=== PATIENT | male | born 1985 | race Caucasian/White ===

== ENCOUNTER 2018-03-26 15:12 | Emergency (ER) | payer BC, OTHER ==
[2018-03-26 15:24] VITALS: BP 131/79
--- NOTE | 2018-04-07 06:32 | UC ---
Cardiac HPI - History of Current Complaint Chief Complaint: UCChestPain Stated Complaint: DIZZY,LEFT ARM AND NECK PAIN Time Seen by Provider: 03/26/18 15:38 Pain Intensity: 3 - Allergy/Home Medications Allergies/Adverse Reactions: Allergies Allergy/AdvReac Type Severity Reaction Status Date / Time Seasonal Allergies Allergy Sneezing Uncoded 03/17/15 10:49 Home Medications: Home Medications Hyoscyamine ER (NF) [Levbid (NF)] 0.375 mg PO BID 03/26/18 [History Confirmed ] PMH/Surg Hx/FS Hx/Imm Hx - Surgical History Surgical History: Yes Surgery Procedure, Year, and Place: L knee surgery - Social History Alcohol Use: Daily Alcohol Amount: 1 per day Substance Use Type: None Smoking Status (MU): Smoker, Current Status Unknown Type: Cigars When Did the Patient Quit Smoking/Using Tobacco: 6 years ago - Immunization History Most Recent Tetanus Shot: 2013 Physical Exam Vital Signs: Initial Vital Signs Temp 98.8 F 03/26/18 15:20 Pulse 76 03/26/18 15:20 Resp 18 03/26/18 15:20 BP 131/79 03/26/18 15:20 Pulse Ox 100 03/26/18 15:20 Discharge - Discharge Plan Condition: Stable Disposition: HOME Referrals: No Primary Care Phys,NOPCP [Primary Care Provider] - Additional Instructions: Go directly to the ED - Billing Disposition and Condition Condition: STABLE Disposition: Home
--- NOTE | 2018-04-07 06:32 | UC ---
Cardiac HPI - HPI Summary HPI Summary: Patient is an otherwise healthy 32-year-old male presenting to the urgent care with complaint of lightheadedness and left-sided chest pain radiating to the left arm. His left-sided chest pain began simultaneously with his lightheadedness. He states however he has had this chest pain intermittently 2 years, however has never had lightheadedness accompanying. Denies any shortness of breath, or shortness of breath with exertion. He describes this pain as a dull ache. Denies any fever, cough, recent trauma to the chest or ribs, nausea, vomiting, diarrhea, or abdominal pain. Former smoker, quit approximately 10 years ago. 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 Onset/Duration: Sudden Onset Timing: Intermittent Episodes Lasting: - 30 minutes Initial Severity: Mild Pain Intensity: 3 Chest Pain Location: Left Anterior Character: Dull/Aching Aggravating Factor(s): Nothing Alleviating Factor(s): Spontaneous Resolution Associated Signs & Symptoms: Positive: Chest Pain - Risk Factors Pulmonary Embolism Risk Factors: Negative Cardiac Risk Factors: Negative Atrial Fibrillation: Negative TAD Risk Factors: Negative - Allergy/Home Medications Allergies/Adverse Reactions: Allergies Allergy/AdvReac Type Severity Reaction Status Date / Time Seasonal Allergies Allergy Sneezing Uncoded 03/17/15 10:49 Home Medications: Home Medications Hyoscyamine ER (NF) [Levbid (NF)] 0.375 mg PO BID 03/26/18 [History Confirmed ] PMH/Surg Hx/FS Hx/Imm Hx Previously Healthy: Yes - Surgical History Surgical History: Yes Surgery Procedure, Year, and Place: L knee surgery - Family History Known Family History: Positive: Hypertension - Social History Occupation: Employed Full-time Lives: With Family Alcohol Use: Daily Alcohol Amount: 1 per day Substance Use Type: None Smoking Status (MU): Smoker, Current Status Unknown Type: Cigars When Did the Patient Quit Smoking/Using Tobacco: 6 years ago - Immunization History Most Recent Tetanus Shot: 2013 Review of Systems Constitutional: Negative Skin: Negative ENT: Negative Respiratory: Negative Cardiovascular: Chest Pain Gastrointestinal: Negative Musculoskeletal: Negative Neurological: Other - lightheadedness Psychological: Negative Is Patient Immunocompromised?: No All Other Systems Reviewed And Are Negative: Yes Physical Exam Triage Information Reviewed: Yes Appearance: Well-Appearing, No Pain Distress, Well-Nourished Vital Signs: Initial Vital Signs Temp 98.8 F 03/26/18 15:20 Pulse 76 03/26/18 15:20 Resp 18 03/26/18 15:20 BP 131/79 03/26/18 15:20 Pulse Ox 100 03/26/18 15:20 Vital Signs Reviewed: Yes Eye Exam: Normal Eyes: Positive: Conjunctiva Clear Neck exam: Normal Neck: Positive: Supple Respiratory Exam: Normal Respiratory: Positive: Chest non-tender, Lungs clear Cardiovascular Exam: Normal Cardiovascular: Positive: RRR. Negative: Tachycardia, Bradycardia, Distal Pulses Weak, Distal Pulses Absent, Delayed Capillary Refill Musculoskeletal Exam: Normal Musculoskeletal: Positive: Strength Intact Neurological Exam: Normal Neurological: Positive: Alert Psychological Exam: Normal Psychological: Positive: Normal Response To Family Skin Exam: Normal - Assessment/Plan Course Of Treatment: During the course of treatment, the patient is evaluated for what sided chest pain radiating to the left arm with lightheadedness. Discussed with patient at length concern for his symptoms and is encouraged to go to the ED. He is agreeable to this plan. EKG obtained which shows no abnormal findings. Discussed case with girlfriend at bedside who agrees with plan to go directly to the ED. They have declined ambulance and will go by private car. He is currently asymptomatic. Vital signs remained stable. - Differential Diagnoses - Chest Pain Differential Diagnosis/HQI/PQRI: Acute [place], ACS, Angina, Chest Wall - Clinical Impression Provider Diagnoses: Chest Pain Discharge - Sign-Out/Discharge Documenting (check all that apply): Patient Departure - Discharge Plan Condition: Stable Disposition: HOME Referrals: No Primary Care Phys,NOPCP [Primary Care Provider] - Additional Instructions: Go directly to the ED - Billing Disposition and Condition Condition: STABLE Disposition: Home Attestation Statement User Type: Provider - I was available for consult. This patient was seen by the PRICILLA. The patient was not presented to, seen by, or examined by me. -Pravin
== END 2018-03-26 16:12 | disposition home or self-care (01) ==
LOC: UCEAST 15:12
DX: R07.89 Other chest pain (principal); R42 Dizziness and giddiness; Z82.49 Family history of ischemic heart disease and other diseases of the circulatory system; Z87.891 Personal history of nicotine dependence
CPT/HCPCS: 93005; 99212; G0463

== ENCOUNTER 2018-03-26 16:39 | Emergency (ER) | payer BC ==
[2018-03-26 21:35] LABS: ABS Basophils 0 10^3/ul (0-0.2); ABS Eosinophils 0.1 10^3/ul (0-0.6); ABS Lymphocytes 2.4 10^3/ul (1.0-4.8); ABS Monocytes 0.4 10^3/ul (0-0.8); ABS Neutrophils 4.6 10^3/ul (1.5-7.7); ABS Nucleated RBC 0 10^3/ul; Eosinophil % 0.9 % (0-6); Hematocrit 41 % (42-52); Hemoglobin 14.3 g/dl (14.0-18.0); Lymphocyte % 31.5 % (25-47); Mean Corpuscular HGB Conc 35 g/dl (31-36); Mean Corpuscular Hemoglobin 31 pg (27-31); Mean Corpuscular Volume 87 fL (80-94); Nucleated Red Blood Cells % 0; Platelet Count 287 10^3/ul (150-450); Red Blood Count 4.69 10^6/ul (4.00-5.40); Red Cell Distribution Width 13 % (10.5-15); White Blood Count 7.6 10^3/ul (3.5-10.8)
[2018-03-26 21:54] LABS: EGFR Non-African American 93.6 (>60)
--- NOTE | 2018-03-26 22:35 | ED ---
HPI Chest Pain - HPI Summary HPI Summary: Patient complains of dull ache in left side chest with intermittent spikes x months. Patient had similar episode today starting at 2pm accompanied with lightheadedness, sweating hands, pain radiating from left neck into left arm. Active mild pain left-sided chest still here in ED, but other symptoms have resolved. States this is the first time he has had those symptoms associated with this left side pain. Denies history of CP or SOB with exertion. CP described as random onset, dull ache with occasional sharp spikes. Sent by urgent care to the ED for further evaluation. EKG at urgent care was negative, sent for troponin. Patient denies SOB, fever, cough, sore throat, trauma, lifting, N/V/D, abdominal pain, change in urinary BM. Medical history is IBS. Former smoker, quit 9 years ago. denies caffeine or energy drinks, denies illegal drug use. Denies family cardiac history, history of blood clots, recent surgery or trauma, recent immobility, history of cancer, hemoptysis, recent history of unilateral leg pain. - History of Current Complaint Chief Complaint: EDChestWallPain Time Seen by Provider: 03/26/18 20:30 Hx Obtained From: Patient Onset/Duration: Started Weeks Ago Timing: Intermittent Initial Severity: Mild Current Severity: Mild Pain Intensity: 3 Pain Scale Used: 0-10 Numeric Chest Pain Location: Discrete at:, Left Anterior Chest Pain Radiates To:: Arm, Neck Character: Dull/Aching Alleviating Factor(s): Nothing Associated Signs and Symptoms: Positive: Chest Pain, Lightheadedness - Risk Factors Pulmonary Embolism Risk Factors: Negative AMI/ACS Risk Factors: Myocardial Infarction - Allergy/Home Medications Allergies/Adverse Reactions: Allergies Allergy/AdvReac Type Severity Reaction Status Date / Time Seasonal Allergies Allergy Sneezing Uncoded 03/17/15 10:49 PMH/Surg Hx/FS Hx/Imm Hx Endocrine/Hematology History: Denies: Hx Anticoagulant Therapy, Hx Diabetes, Hx Thyroid Disease Cardiovascular History: Denies: Hx Hypertension Respiratory History: Denies: Hx Asthma, Hx Chronic Obstructive Pulmonary Disease (COPD) GI History: Denies: Hx Ulcer History: Denies: Hx Dialysis Neurological History: Denies: Hx CVA - Surgical History Surgery Procedure, Year, and Place: L knee surgery Infectious Disease History: No Infectious Disease History: Denies: Hx Hepatitis, Hx Human Immunodeficiency Virus (HIV), History Other Infectious Disease, Traveled Outside the [place] in Last 30 Days - Social History Alcohol Use: Daily Alcohol Amount: 1 per day Substance Use Type: Reports: None Smoking Status (MU): Smoker, Current Status Unknown Type: Cigars Review of Systems Positive: Skin Diaphoresis Eyes: Negative ENT: Negative Positive: Chest Pain Respiratory: Negative Gastrointestinal: Negative Genitourinary: Negative Musculoskeletal: Negative Skin: Negative Neurological: Negative Psychological: Normal All Other Systems Reviewed And Are Negative: Yes Physical Exam - Summary Physical Exam Summary: Chest mildly tender to palpation, patient unsure if palpation reproduces the concerning pain Triage Information Reviewed: Yes Vital Signs On Initial Exam: Initial Vitals Temp Pulse Resp BP Pulse Ox 98.3 F 68 16 125/75 98 03/26/18 16:45 03/26/18 16:45 03/26/18 16:45 03/26/18 16:45 03/26/18 16:45 Vital Signs Reviewed: Yes Appearance: Positive: Well-Appearing Skin: Positive: Warm Head/Face: Positive: Normal Head/Face Inspection Eyes: Positive: Normal Neck: Positive: Supple Respiratory/Lung Sounds: Positive: Clear to Auscultation Cardiovascular: Positive: Normal Abdomen Description: Positive: Nontender Musculoskeletal: Positive: Normal Neurological: Positive: Normal Psychiatric: Positive: Normal AVPU Assessment: Alert - Kandy Coma Scale Best Eye Response: 4 - Spontaneous Best Motor Response: 6 - Obeys Commands Best Verbal Response: 5 - Oriented Coma Scale Total: 15 Diagnostics - Vital Signs Vital Signs Temp Pulse Resp BP Pulse Ox 03/26/18 22:00 65 17 99 03/26/18 21:58 61 13 139/84 98 03/26/18 21:28 61 16 135/78 100 03/26/18 21:00 64 20 100 03/26/18 20:59 64 18 138/80 99 03/26/18 20:56 3 03/26/18 19:29 99.3 F 67 16 122/75 99 03/26/18 18:30 97.1 F 51 16 131/64 100 03/26/18 16:45 98.3 F 68 16 125/75 98 - Laboratory Lab Results: Lab Results 03/26/18 03/26/18 03/26/18 Range/Units 21:24 21:24 21:24 WBC 7.6 (3.5-10.8) 10^3/ul RBC 4.69 (4.00-5.40) 10^6/ul Hgb 14.3 (14.0-18.0) g/dl Hct 41 L (42-52) % MCV 87 (80-94) fL MCH 31 (27-31) pg MCHC 35 (31-36) g/dl RDW 13 (10.5-15) % Plt Count 287 (150-450) 10^3/ul MPV 8.0 (7.4-10.4) um3 Neut % (Auto) 61.2 (38-83) % Lymph % (Auto) 31.5 (25-47) % [place] % (Auto) 5.8 (0-7) % Eos % (Auto) 0.9 (0-6) % Baso % (Auto) 0.6 (0-2) % Absolute Neuts (auto) 4.6 (1.5-7.7) 10^3/ul Absolute Lymphs (auto) 2.4 (1.0-4.8) 10^3/ul Absolute Monos (auto) 0.4 (0-0.8) 10^3/ul Absolute Eos (auto) 0.1 (0-0.6) 10^3/ul Absolute Basos (auto) 0 (0-0.2) 10^3/ul Absolute Nucleated RBC 0 10^3/ul Nucleated RBC % 0 D-Dimer, Quantitative < 200 (Less Than 230) ng/mL Sodium 142 (135-145) mmol/L Potassium 3.3 L (3.5-5.0) mmol/L Chloride 106 (101-111) mmol/L Carbon Dioxide 26 (22-32) mmol/L Anion Gap 10 (2-11) mmol/L BUN 9 (6-24) mg/dL Creatinine 0.93 (0.67-1.17) mg/dL Est GFR ( Amer) 113.2 (>60) Est GFR (Non-Af Amer) 93.6 (>60) BUN/Creatinine Ratio 9.7 (8-20) Glucose 104 H (70-100) mg/dL Lactic Acid (0.5-2.0) mmol/L Calcium 9.5 (8.6-10.3) mg/dL Total Bilirubin 1.00 (0.2-1.0) mg/dL AST 17 (13-39) U/L ALT 20 (7-52) U/L Alkaline Phosphatase 72 (34-104) U/L Troponin I 0.00 (<0.04) ng/mL C-Reactive Protein < 1.00 (<8.01) mg/L Total Protein 7.2 (6.4-8.9) g/dL Albumin 4.6 (3.2-5.2) g/dL Globulin 2.6 (2-4) g/dL Albumin/Globulin Ratio 1.8 (1-3) TSH 2.23 (0.34-5.60) mcIU/mL 03/26/18 Range/Units 21:24 WBC (3.5-10.8) 10^3/ul RBC (4.00-5.40) 10^6/ul Hgb (14.0-18.0) g/dl Hct (42-52) % MCV (80-94) fL MCH (27-31) pg MCHC (31-36) g/dl RDW (10.5-15) % Plt Count (150-450) 10^3/ul MPV (7.4-10.4) um3 Neut % (Auto) (38-83) % Lymph % (Auto) (25-47) % [place] % (Auto) (0-7) % Eos % (Auto) (0-6) % Baso % (Auto) (0-2) % Absolute Neuts (auto) (1.5-7.7) 10^3/ul Absolute Lymphs (auto) (1.0-4.8) 10^3/ul Absolute Monos (auto) (0-0.8) 10^3/ul Absolute Eos (auto) (0-0.6) 10^3/ul Absolute Basos (auto) (0-0.2) 10^3/ul Absolute Nucleated RBC 10^3/ul Nucleated RBC % D-Dimer, Quantitative (Less Than 230) ng/mL Sodium (135-145) mmol/L Potassium (3.5-5.0) mmol/L Chloride (101-111) mmol/L Carbon Dioxide (22-32) mmol/L Anion Gap (2-11) mmol/L BUN (6-24) mg/dL Creatinine (0.67-1.17) mg/dL Est GFR ( Amer) (>60) Est GFR (Non-Af Amer) (>60) BUN/Creatinine Ratio (8-20) Glucose (70-100) mg/dL Lactic Acid 0.7 (0.5-2.0) mmol/L Calcium (8.6-10.3) mg/dL Total Bilirubin (0.2-1.0) mg/dL AST (13-39) U/L ALT (7-52) U/L Alkaline Phosphatase (34-104) U/L Troponin I (<0.04) ng/mL C-Reactive Protein (<8.01) mg/L Total Protein (6.4-8.9) g/dL Albumin (3.2-5.2) g/dL Globulin (2-4) g/dL Albumin/Globulin Ratio (1-3) TSH (0.34-5.60) mcIU/mL Result Diagrams: 03/26/18 21:24 03/26/18 21:24 Lab Statement: Any lab studies that have been ordered have been reviewed, and results considered in the medical decision making process. - Radiology cxr Xray Interpretation: No Acute Changes Radiology Interpretation Completed By: ED Physician - EKG 1 Cardiac Rate: NL EKG Rhythm: Sinus Rhythm ST Segment: Non-Specific Ectopy: None EKG Interpretation: probable early repol Chest Pain Course/Dx - Course Course Of Treatment: Patient complains of dull ache in left side chest with intermittent spikes x months. Patient had similar episode today starting at 2pm accompanied with lightheadedness, sweating hands, pain radiating from left neck into left arm. Active mild pain left-sided chest still here in ED, but other symptoms have resolved. States this is the first time he has had those symptoms associated with this left side pain. Denies history of CP or SOB with exertion. CP described as random onset, dull ache with occasional sharp spikes. Sent by urgent care to the ED for further evaluation. EKG at urgent care was negative, sent for troponin. Patient denies SOB, fever, cough, sore throat, trauma, lifting, N/V/D, abdominal pain, change in urinary BM. Medical history is IBS. Former smoker, quit 9 years ago. denies caffeine or energy drinks, denies illegal drug use. Denies family cardiac history, history of blood clots, recent surgery or trauma, recent immobility, history of cancer, hemoptysis, recent history of unilateral leg pain. PE: Chest mildly tender to palpation, patient unsure if palpation reproduces the concerning pain. Vital signs stable and within normal limits. Labs and imaging unremarkable. Persistent CP since 2 PM today. First troponin negative at 21:24. No cardiac risk factors. Neg for PERC criteria. Follow-up with primary care. - Diagnoses Provider Diagnoses: Atypical chest pain Discharge - Sign-Out/Discharge Documenting (check all that apply): Patient Departure - Discharge Plan Condition: Stable Disposition: HOME Patient Education Materials: Chest Pain (ED), Chest Wall Pain (ED) Referrals: No Primary Care Phys,NOPCP [Primary Care Provider] - [facility] [Outside] Additional Instructions: Follow-up with primary care. Return to the ED for any new or worsening symptoms - Billing Disposition and Condition Condition: STABLE Disposition: Home
[2018-03-27 00:05] VITALS: BP 122/70
--- NOTE | 2018-03-27 07:47 | RAD ---
INDICATION: LEFT side chest pain. Former tobacco use. COMPARISON: No relevant prior exams available on the [facility] PACS for comparison. TECHNIQUE: Dual energy PA and routine lateral views of the chest were obtained. REPORT: Elevated lung volumes and mild prominence of the interstitial markings. No focal pulmonary lesion, compelling alveolar consolidation, pleural effusion, pneumothorax. The heart, pulmonary vasculature, and mediastinal contours are unremarkable. No rib or other thoracic fracture evident. IMPRESSION: #. Stigmata of obstructive lung disease. No acute pulmonary or cardiac process evident. R0
== END 2018-03-27 00:03 | disposition home or self-care (01) ==
LOC: ED 16:39
DX: R07.89 Other chest pain (principal); R42 Dizziness and giddiness; R61 Generalized hyperhidrosis; F17.290 Nicotine dependence, other tobacco product, uncomplicated
CPT/HCPCS: 36415; 71046; 80053; 83605; 84443; 84484; 85025; 85379; 86140; 93005; 99282